=== PATIENT | male | born 1970 | race Asian ===

== ENCOUNTER 2022-05-17 18:32 | Emergency (ER) | payer MEDICAID ==
[~2022-05-17] VITALS: Ht 172.7 cm; Wt 90.0 kg
[2022-05-17 18:41] VITALS: BP 146/85
[2022-05-18] MEDS ORDERED: METF-414 MT (01:49)
[2022-05-18] MEDS ORDERED: ZIPR20CA2 MT (08:23)
[2022-05-18] MEDS ORDERED: BUPR-102 MT (08:23)
== END 2022-05-18 02:14 | disposition home or self-care (01) ==
LOC: ER 18:32
DX: E11.9 Type 2 diabetes mellitus without complications (principal); Z76.0 Encounter for issue of repeat prescription
CPT/HCPCS: 82962; 99283

== ENCOUNTER 2022-05-18 02:38 | Emergency (ER) | payer MEDICAID ==
[~2022-05-18] VITALS: Ht 167.6 cm; Wt 82.0 kg
[~2022-05-18 02:38] MED LIST: METF-414 MT
[2022-05-18 03:39] VITALS: BP 142/82
[2022-05-18] MEDS ORDERED: BUPR-102 MT (08:23)
[2022-05-18] MEDS ORDERED: ZIPR20CA2 MT (08:23)
== END 2022-05-18 11:43 | disposition home or self-care (01) ==
LOC: ER 02:38
DX: Z76.0 Encounter for issue of repeat prescription (principal); E11.9 Type 2 diabetes mellitus without complications; Z86.59 Personal history of other mental and behavioral disorders
CPT/HCPCS: 99281